=== PATIENT | male | born 1955 | race Caucasian/White ===

== ENCOUNTER → 2016-10-08 | Day surgery (SDC) | payer OTHER ==
[~2016-10-08] VITALS: Ht 185.4 cm; Wt 87.5 kg
[~2016-10-08] MED LIST: ASPIRIN EC81 M1 PO; ATORVASTATIN CA80 M1 PO; LISINOPRIL20 M1 PO
--- NOTE | 2016-10-08 09:36 | Operative Report ---
Operative/Inv Procedure Report Surgery Date: 10/08/16 Name of Procedure: Cystoscopy, right ureteroscopy, laser lithotripsy of right distal ureteral calculus, ask extraction of stone fragments, insertion of right double-J ureteral stent Pre-Operative Diagnosis: 1.1 cm right distal ureteral calculus with hydronephrosis Post-Operative Diagnosis: Same Estimated Blood Loss: sanaz Surgeon/Middleware Engineer: ANDRE ARMENDARIZ,ELAYNE Dempsey Anesthesia: laryngeal mask airway Drains: 26 cm 6 Bulgarian right double-J ureteral stent with long suture Microbiology: Stone fragments Complications: None Condition: Stable Operative Indication: Right distal ureteral calculus with hydronephrosis Operative/Procedure Note Note: The patient was taken to the cystoscopy room and identified. He was placed in supine position on the cystoscopy table. A timeout was executed appropriately with the patient awake. Gen. anesthesia was induced via LMA. He was then placed in dorsal lithotomy position and prepped and draped in usual fashion for cystoscopy. A surgical pause was executed appropriately. A fluoroscopy images taken with a marker on the right side of the abdomen to confirm the correct side of surgery as well as a correct orientation of the fluoroscopy image. The 22 Bulgarian cystoscope sheath was placed into the bladder under direct vision using the 30 lens. Anterior urethra was normal. The prostatic urethra showed partial obstruction but was only about 2.5-3 cm in length. Upon entering the bladder cystoscopy was performed. The bladder was mildly trabeculated. There was no evidence of bladder tumor or stone. Both ureteral orifices were normal in location and appearance. A sensor guidewire was placed through the cystoscope into the right ureter and advanced up the level of the right kidney. The cystoscope was removed leaving the wire in place. The rigid ureteroscope was advanced through the urethra into the bladder. A second wire was placed through the ureteroscope and into the right ureter. The ureteroscope was then advanced into the right distal ureter. A large right distal ureteral calculus seen. The guidewire through the ureteroscope was removed. 2 other 27 holmium laser fiber was placed through the ureteroscope. The stone was fragmented into multiple small fragments. Several of the fragments were then removed with a spiral stone basket. The remaining stone fragments were very small in size and felt to be able to pass spontaneously. The ureteroscope was removed leaving the guidewire in place. The cystoscope was back loaded onto the guidewire. An open -ended catheter was placed over the wire and advanced up the level of the right kidney. The guidewire was removed and some contrast was injected to outline the right renal collecting system. Guidewire was placed back through the open-ended catheter which was removed. Under visual fluoroscopic control a 26 cm 6 Bulgarian right double-J ureteral stent was placed. The guidewire was removed. Fluoroscopy confirmed the proximal and the stent coiled right at the right ureteropelvic junction and the distal end coiled in the bladder. A long suture was left attached the distal and the stent exiting the urethra. Patient tolerated procedure well and as completion was taken recovery in stable condition. Findings: 1.1 cm R distal ureteral stone Discharge Disposition: PACU
--- NOTE | 2016-10-09 14:22 | RADIOLOGY REPORT ---
EXAMINATION: XR ABDOMEN/INTRAOPERATIVE FLUOROSCOPY CLINICAL INDICATION: Right ureteroscopy, lithotripsy, retrograde pyelogram and stent insertion in OR. COMPARISON: None TECHNIQUE/FINDINGS: Intraoperative fluoroscopy was provided in the operating room for performance of a lithotripsy, retrograde pyelogram and stent insertion. 19 fluoroscopic spot films were acquired and are archived in PACS. Multiple images demonstrate sequential placement of a catheter into the right renal pelvis with contrast injection subsequently made. No caliectasis is demonstrated. Prominent extrarenal pelvis is noted. On some of the images it appears that there may be subtle filling defects within the proximal right ureter. These are, however, not reproduced on several subsequent images. Final image demonstrates portions of the right double-J ureteral stent in place with the mid and distal ureteral stent appearing unremarkable and distal pigtail being located within the bladder. The proximal pigtail is less well visualized but appears to be located within the opacified renal pelvis. FLUOROSCOPY TIME: 0.3 seconds. IMPRESSION: Administrative dictation for intraoperative fluoroscopy and image archiving. Please refer to intraoperative notes.
== END ==
LOC: STS 01:32
DX: N13.2 Hydronephrosis with renal and ureteral calculous obstruction (principal); Z87.442 Personal history of urinary calculi; N32.89 Other specified disorders of bladder; I10 Essential (primary) hypertension; E78.4 Other hyperlipidemia; F17.200 Nicotine dependence, unspecified, uncomplicated; Z79.82 Long term (current) use of aspirin; R31.0 Gross hematuria
CPT/HCPCS: 74000; 82355; C2617; J0131; J0690; J2250